=== PATIENT | female | born 1965 | race African-American/Black ===

== ENCOUNTER 2018-06-28 07:38 | Inpatient (IN) | payer MEDICARE, MEDICAID ==
[2018-06-28] VITALS (8 sets, daily range): BP systolic 150–201; BP diastolic 80–94
[~2018-06-28] VITALS: Ht 165.1 cm; Wt 130.2 kg
[2018-06-28] MEDS ORDERED: IPRATROPIUM BROMIDE (0.02%) 0.5MG/2.5ML NEB HHN STA (08:02)
[2018-06-28] MEDS ORDERED: ALBUTEROL (0.083%) 2.5MG/3ML NEB HHN STA (08:02)
[2018-06-28] MEDS ORDERED: NITROGLYCERIN 50MG PREMIX 250 ML IV ONE (08:15)
[2018-06-28] MEDS ORDERED: FUROSEMIDE 40MG/4ML VIAL IV ONE (08:15)
[2018-06-28] MEDS ORDERED: NITROGLYCERIN 0.4MG TABLET SL SL PRN ×2 (08:30→12:15)
[2018-06-28 09:06] LABS: BASOPHILS % 0.4 % (0.0-2.0); EOSINOPHILS % 0.6 % (0.0-5.0); HEMATOCRIT. 37.1 % (36.0-48.0); HEMOGLOBIN. 11.7 g/dL (12.0-16.0); LYMPHOCYTES % 9.2 % (20.0-50.0); MEAN CORPUSCULAR HEMOGLOBIN 25.5 pg (28.0-32.0); MEAN CORPUSCULAR VOLUME 80.8 fL (81.0-99.0); MEAN PLATELET VOLUME 8.6 fl (7.4-10.4); NEUTROPHILS % 85.8 % (40.0-76.0); PLATELET 293 x1000/uL (130-400); RED BLOOD CELL COUNT 4.59 mill/uL (4.2-5.4)
[2018-06-28 09:07] LABS: CHLORIDE 114 mEq/L (98-107)
[2018-06-28 09:09] LABS: PROTHROMBIN TIME 10.5 sec (9.6-11.0)
[2018-06-28] MEDS ORDERED: LEVOFLOXACIN 750MG PREMIX 150 ML IV ONE (09:15)
[2018-06-28] MEDS ORDERED: VANCOMYCIN 1 G PREMIX 200 ML IV STA (09:19)
[2018-06-28] MEDS ORDERED: CEFEPIME 1,000 MG in DEXTROSE 5% WATER 50 ML IV STA (09:19)
[2018-06-28] MEDS ORDERED: LIDOCAINE HCL 1% 20ML VIAL (Pyxis) INJ ONE (09:30)
[2018-06-28] MEDS ORDERED: KETOROLAC 15MG/ML VIAL IV ONE (09:30)
[2018-06-28] MEDS ORDERED: ASPIRIN 81MG TABLET PO ONE (09:30)
[2018-06-28] MEDS ORDERED: SODIUM BICARBONATE 4% (2.4MEQ) 5ML VIAL IV ONE (09:30)
[2018-06-28] MEDS ORDERED: TRAMADOL 50MG TABLET PO PRN (12:15)
[2018-06-28] MEDS ORDERED: IPRATROPIUM/ALBUTEROL 0.5-3(2.5)MG/3ML NEB INH PRN (12:15)
[2018-06-28] MEDS ORDERED: ONDANSETRON HCL 4MG/2ML INJ IV PRN (12:15)
[2018-06-28] MEDS ORDERED: LORAZEPAM 0.5MG TABLET PO PRN ×2 (12:15→13:00)
[2018-06-28] MEDS ORDERED: DIPHENHYDRAMINE 50MG/ML VIAL IV PRN (12:15)
[2018-06-28] MEDS ORDERED: ENOXAPARIN 40MG/0.4ML SYR SUBCUT SCH (12:15)
[2018-06-28] MEDS ORDERED: DEXTROSE 50% WATER 50ML SYRINGE IV PRN (12:15)
[2018-06-28] MEDS ORDERED: CLONIDINE 0.1MG TABLET PO PRN (12:15)
[2018-06-28] MEDS ORDERED: ZOLPIDEM TARTRATE 5MG TABLET PO PRN (12:15)
[2018-06-28] MEDS ORDERED: MAGNESIUM/ALUMINUM HYDROXIDE/SIMETHICONE 30ML UDC PO PRN (12:15)
[2018-06-28] MEDS ORDERED: GUAIFENESIN 200MG/10ML SUGAR FREE UDC PO PRN (12:15)
[2018-06-28 13:51] LABS: BG BASE EXCESS -1.4 mmol/L (-2.0-2.0); BG BILEVEL POS AIRWAY PRESSURE ST=18/5; BG CARBOXYHEMOGLOBIN 0.3 % (0.5-1.5); BG DEOXYHEMOGLOBIN 3.1 % (0.0-5.0); BG FRACTION INSPIRED OXYGEN 40; BG HCO3 ACT 23.1 mmol/L (22.0-26.0); BG METHEMOGLOBIN 0.3 % (0.0-1.5); BG OXYGEN SATURATION 96.9 % (92.0-98.5); BG OXYHEMOGLOBIN 96.3 % (94.0-97.0); BG PH 7.402 (7.350-7.450); BG PO2 92.9 mmHg (75.0-100.0); BG PRESSURE SUPPORT 13; BG SAMPLE SITE RIGHT BRACHIAL; BG TOTAL HEMOGLOBIN 11.5 g/dL (12.0-18.0); BG VENT MODE MASK - BIPAP; BG VENT RATE 12 set
[2018-06-28 15:52] LABS: CREATINE KINASE MB FRACTION 1.1 ng/mL (0.5-3.6)
[2018-06-28] MEDS: BLOOD SUGAR DIAGNOSTIC STRIP TEST SCH ×2 (17:00→20:38)
[2018-06-28] MEDS: INSULIN LISPRO 100 UNITS/ML SUBCUT SCH ×2 (17:20→21:37)
[2018-06-28] MEDS ORDERED: INFLUENZA VIRUS VACCINE(AFLURIA) 0.5ML SYR IM ONE (17:30)
[2018-06-28] MEDS ORDERED: PNEUMOCOCCAL 23-VAL P-SAC VAC 0.5 ML IM ONE (17:30)
[2018-06-28] MEDS ORDERED: LORAZEPAM 2MG/ML CPJ IV PRN (18:45)
[2018-06-28 18:52] LABS: BG BASE EXCESS -0.1 mmol/L (-2.0-2.0); BG BILEVEL POS AIRWAY PRESSURE 18/5; BG DEOXYHEMOGLOBIN 6.5 % (0.0-5.0); BG FRACTION INSPIRED OXYGEN 40; BG METHEMOGLOBIN 0.4 % (0.0-1.5); BG OXYGEN SATURATION 93.5 % (92.0-98.5); BG OXYHEMOGLOBIN 93.1 % (94.0-97.0); BG PCO2 37.3 mmHg (35.0-45.0); BG PH 7.427 (7.350-7.450); BG PO2 67.7 mmHg (75.0-100.0); BG SAMPLE SITE RIGHT BRACHIAL; BG TOTAL HEMOGLOBIN 11.1 g/dL (12.0-18.0); BG VENT MODE MASK - BIPAP; BG VENT RATE 18 set
[2018-06-28] MEDS ORDERED: PIPERACILLIN/TAZ 3.375G PREMIX 50 ML IV SCH (20:00)
[2018-06-28] MEDS: FUROSEMIDE 40MG/4ML VIAL IVP SCH (20:36)
[2018-06-28] MEDS: METHYLPREDNISOLONE SOD SUCC 125 MG/2 ML VIAL IV SCH (20:37)
[2018-06-28] MEDS: GUAIFENESIN/DM 600MG/30MG ER TAB 12HR PO SCH (20:37)
[2018-06-28] MEDS: ENOXAPARIN 150MG/ML SYR SUBCUT SCH (20:37)
[2018-06-28] MEDS: LISINOPRIL 20MG TABLET PO SCH (20:38)
[2018-06-28] MEDS: FAMOTIDINE 20MG TABLET PO SCH (20:38)
[2018-06-28] MEDS: METOPROLOL TARTRATE 25MG TABLET PO SCH (20:38)
[2018-06-28 23:47] LABS: CREATINE KINASE 86 IU/L (26-192)
[2018-06-29] VITALS (25 sets, daily range): BP systolic 119–174; BP diastolic 65–98
[2018-06-29 01:48] LABS: CREATINE KINASE MB FRACTION < 1.0 ng/mL (0.5-3.6)
[2018-06-29] MEDS: PIPERACILLIN/TAZ 3.375G PREMIX 50 ML IV SCH ×4 (05:07→23:19)
[2018-06-29] MEDS: METHYLPREDNISOLONE SOD SUCC 125 MG/2 ML VIAL IV SCH ×3 (05:07→22:13)
[2018-06-29] MEDS: INSULIN LISPRO 100 UNITS/ML SUBCUT SCH ×4 (07:23→21:38)
[2018-06-29] MEDS: BLOOD SUGAR DIAGNOSTIC STRIP TEST SCH ×4 (07:24→21:28)
[2018-06-29] MEDS: IPRATROPIUM/ALBUTEROL 0.5-3(2.5)MG/3ML NEB HHN SCH ×4 (07:35→20:49)
[2018-06-29] MEDS: FAMOTIDINE 20MG TABLET PO SCH ×2 (07:47→21:27)
[2018-06-29] MEDS: METOPROLOL TARTRATE 25MG TABLET PO SCH ×2 (07:47→21:28)
[2018-06-29] MEDS: DOCUSATE SODIUM 100MG CAPSULE PO PRN (07:47)
[2018-06-29] MEDS: FUROSEMIDE 40MG/4ML VIAL IVP SCH ×2 (07:47→21:27)
[2018-06-29] MEDS: GUAIFENESIN/DM 600MG/30MG ER TAB 12HR PO SCH ×2 (07:47→21:27)
[2018-06-29] MEDS: LISINOPRIL 20MG TABLET PO SCH ×2 (07:48→21:27)
[2018-06-29] MEDS: ASPIRIN 325MG EC TABLET PO SCH (07:48)
[2018-06-29] MEDS: ENOXAPARIN 150MG/ML SYR SUBCUT SCH ×2 (07:50→21:36)
[2018-06-29] MEDS ORDERED: INSULIN LISPRO 100 UNITS/ML SUBCUT SCH (18:00)
[2018-06-29] MEDS: INSULIN GLARGINE UD 100 UNITS/ML SYR SUBCUT SCH (22:13)
[2018-06-30] VITALS (21 sets, daily range): BP systolic 118–183; BP diastolic 56–116
[2018-06-30] MEDS: IPRATROPIUM/ALBUTEROL 0.5-3(2.5)MG/3ML NEB HHN SCH ×6 (00:33→21:06)
[2018-06-30] MEDS: METHYLPREDNISOLONE SOD SUCC 125 MG/2 ML VIAL IV SCH (05:31)
[2018-06-30] MEDS: PIPERACILLIN/TAZ 3.375G PREMIX 50 ML IV SCH ×3 (05:31→17:27)
[2018-06-30] MEDS: BLOOD SUGAR DIAGNOSTIC STRIP TEST SCH ×4 (06:22→21:19)
[2018-06-30] MEDS: FUROSEMIDE 40MG/4ML VIAL IVP SCH ×2 (08:18→21:17)
[2018-06-30] MEDS: FAMOTIDINE 20MG TABLET PO SCH ×2 (08:18→21:18)
[2018-06-30] MEDS: ASPIRIN 325MG EC TABLET PO SCH (08:18)
[2018-06-30] MEDS: LISINOPRIL 20MG TABLET PO SCH ×2 (08:18→21:18)
[2018-06-30] MEDS: METOPROLOL TARTRATE 25MG TABLET PO SCH ×2 (08:18→21:18)
[2018-06-30] MEDS: GUAIFENESIN/DM 600MG/30MG ER TAB 12HR PO SCH ×2 (08:18→21:17)
[2018-06-30] MEDS: ENOXAPARIN 150MG/ML SYR SUBCUT SCH ×2 (08:20→21:19)
[2018-06-30] MEDS: INSULIN LISPRO 100 UNITS/ML SUBCUT SCH ×4 (08:22→21:29)
[2018-06-30 10:07] LABS: BASOPHILS % 0.2 % (0.0-2.0); HEMATOCRIT. 34.1 % (36.0-48.0); HEMOGLOBIN. 11.1 g/dL (12.0-16.0); LYMPHOCYTES % 9.7 % (20.0-50.0); MEAN CORPUSCULAR HEMOGLOBIN 25.6 pg (28.0-32.0); MEAN CORPUSCULAR VOLUME 78.4 fL (81.0-99.0); MEAN PLATELET VOLUME 9.1 fl (7.4-10.4); MONOCYTES % 2.7 % (2.0-8.0); NEUTROPHILS % 87.4 % (40.0-76.0); PLATELET 294 x1000/uL (130-400); RED BLOOD CELL COUNT 4.35 mill/uL (4.2-5.4); RED CELL DISTRIBUTION WIDTH 15.3 % (11.6-14.6)
[2018-06-30 10:10] LABS: INR 1.1; PARTIAL THROMBOPLASTIN TIME 35.2 sec (23.4-31.0); PROTHROMBIN TIME 10.9 sec (9.6-11.0)
[2018-06-30 10:54] LABS: BG BASE EXCESS -5.4 mmol/L (-2.0-2.0); BG CARBOXYHEMOGLOBIN 0.3 % (0.5-1.5); BG FRACTION INSPIRED OXYGEN 21; BG HCO3 ACT 18.3 mmol/L (22.0-26.0); BG METHEMOGLOBIN 0.2 % (0.0-1.5); BG OXYHEMOGLOBIN 92.5 % (94.0-97.0); BG PCO2 29.9 mmHg (35.0-45.0); BG PH 7.404 (7.350-7.450); BG PO2 69.5 mmHg (75.0-100.0); BG SAMPLE SITE RIGHT BRACHIAL; BG TOTAL HEMOGLOBIN 11.3 g/dL (12.0-18.0); BG VENT MODE ROOM AIR
[2018-06-30] MEDS: PREDNISONE 20MG TABLET PO SCH ×2 (12:03→17:27)
[2018-06-30] MEDS ORDERED: LORAZEPAM 0.5MG TABLET PO PRN (12:15)
[2018-06-30] MEDS: INSULIN GLARGINE UD 100 UNITS/ML SYR SUBCUT SCH (21:24)
[2018-07-01] VITALS (23 sets, daily range): BP systolic 137–174; BP diastolic 60–110
[2018-07-01] MEDS: PIPERACILLIN/TAZ 3.375G PREMIX 50 ML IV SCH ×5 (00:39→23:47)
[2018-07-01] MEDS: IPRATROPIUM/ALBUTEROL 0.5-3(2.5)MG/3ML NEB HHN SCH ×5 (01:25→21:09)
[2018-07-01] MEDS: BLOOD SUGAR DIAGNOSTIC STRIP TEST SCH ×4 (06:16→21:49)
[2018-07-01] MEDS: FUROSEMIDE 40MG/4ML VIAL IVP SCH ×2 (08:51→20:48)
[2018-07-01] MEDS: ENOXAPARIN 150MG/ML SYR SUBCUT SCH ×2 (08:51→20:49)
[2018-07-01] MEDS: METOPROLOL TARTRATE 25MG TABLET PO SCH ×2 (08:52→21:49)
[2018-07-01] MEDS: ASPIRIN 325MG EC TABLET PO SCH (08:52)
[2018-07-01] MEDS: PREDNISONE 20MG TABLET PO SCH ×2 (08:53→12:55)
[2018-07-01] MEDS: FAMOTIDINE 20MG TABLET PO SCH ×2 (08:53→20:48)
[2018-07-01] MEDS: LISINOPRIL 20MG TABLET PO SCH ×2 (08:53→20:54)
[2018-07-01] MEDS: INSULIN LISPRO 100 UNITS/ML SUBCUT SCH ×4 (08:54→21:31)
[2018-07-01] MEDS ORDERED: MORPHINE SULFATE 4 MG/ML CPJ (NOT FOR IM USE) IV SCH ×2 (10:30→14:45)
[2018-07-01] MEDS ORDERED: HYDROCODONE/ACETAMINOPHEN 10/325MG TABLET PO PRN (10:45)
[2018-07-01] MEDS: GUAIFENESIN/DM 600MG/30MG ER TAB 12HR PO SCH ×2 (12:55→20:50)
[2018-07-01 17:04] LABS: CHLORIDE 103 mEq/L (98-107)
[2018-07-01] MEDS: HYDROCODONE/ACETAMINOPHEN 5/325MG TABLET PO PRN ×2 (21:19→22:29)
[2018-07-01] MEDS: INSULIN GLARGINE UD 100 UNITS/ML SYR SUBCUT SCH (21:25)
[2018-07-02] VITALS (10 sets, daily range): BP systolic 125–150; BP diastolic 56–81
[2018-07-02] MEDS: IPRATROPIUM/ALBUTEROL 0.5-3(2.5)MG/3ML NEB HHN SCH ×6 (00:39→22:58)
[2018-07-02] MEDS: PIPERACILLIN/TAZ 3.375G PREMIX 50 ML IV SCH ×3 (05:15→17:55)
[2018-07-02] MEDS: BLOOD SUGAR DIAGNOSTIC STRIP TEST SCH ×4 (06:44→21:00)
[2018-07-02 07:14] LABS: BASOPHILS % 0.1 % (0.0-2.0); HEMATOCRIT. 28.2 % (36.0-48.0); HEMOGLOBIN. 9.4 g/dL (12.0-16.0); LYMPHOCYTES % 11.8 % (20.0-50.0); MEAN CORPUSCULAR HEMOGLOBIN 26.1 pg (28.0-32.0); MEAN CORPUSCULAR VOLUME 78.3 fL (81.0-99.0); MEAN PLATELET VOLUME 8.9 fl (7.4-10.4); MONOCYTES % 8.6 % (2.0-8.0); NEUTROPHILS % 79.5 % (40.0-76.0); PLATELET 254 x1000/uL (130-400)
[2018-07-02 07:30] LABS: PHOSPHORUS 3.8 mg/dL (2.5-4.9)
[2018-07-02] MEDS: INSULIN LISPRO 100 UNITS/ML SUBCUT SCH ×4 (07:48→21:00)
[2018-07-02] MEDS: ACETAMINOPHEN 325MG TABLET PO PRN (08:47)
[2018-07-02] MEDS: PREDNISONE 20MG TABLET PO SCH ×2 (09:00→09:49)
[2018-07-02] MEDS: FUROSEMIDE 40MG/4ML VIAL IVP SCH ×2 (09:49→22:32)
[2018-07-02] MEDS: FAMOTIDINE 20MG TABLET PO SCH ×2 (09:49→22:33)
[2018-07-02] MEDS: GUAIFENESIN/DM 600MG/30MG ER TAB 12HR PO SCH ×2 (09:49→22:33)
[2018-07-02] MEDS: ASPIRIN 325MG EC TABLET PO SCH (09:49)
[2018-07-02] MEDS: METOPROLOL TARTRATE 25MG TABLET PO SCH ×2 (09:53→22:32)
[2018-07-02] MEDS: LISINOPRIL 20MG TABLET PO SCH ×2 (09:53→22:33)
[2018-07-02] MEDS: ENOXAPARIN 150MG/ML SYR SUBCUT SCH (09:56)
[2018-07-02] MEDS: MORPHINE SULFATE 4 MG/ML CPJ (NOT FOR IM USE) IV PRN ×2 (15:39→21:18)
[2018-07-02] MEDS: ENOXAPARIN 30MG/0.3ML SYR SUBCUT SCH (22:32)
[2018-07-02] MEDS: INSULIN GLARGINE UD 100 UNITS/ML SYR SUBCUT SCH (22:46)
[2018-07-03] VITALS: BP_SYST 136; BP_SYST 156; BP_DIAS 77
[2018-07-03] MEDS: PIPERACILLIN/TAZ 3.375G PREMIX 50 ML IV SCH ×4 (00:43→19:48)
[2018-07-03] MEDS: IPRATROPIUM/ALBUTEROL 0.5-3(2.5)MG/3ML NEB HHN SCH ×7 (02:16→23:54)
[2018-07-03] MEDS: MORPHINE SULFATE 4 MG/ML CPJ (NOT FOR IM USE) IV PRN ×3 (02:37→19:00)
[2018-07-03 04:00] VITALS: BP 120/49
[2018-07-03] MEDS: INSULIN LISPRO 100 UNITS/ML SUBCUT SCH ×4 (07:10→21:00)
[2018-07-03] MEDS: BLOOD SUGAR DIAGNOSTIC STRIP TEST SCH ×4 (07:10→21:18)
[2018-07-03 08:00] VITALS: BP 140/48
[2018-07-03] MEDS: PREDNISONE 20MG TABLET PO SCH ×2 (09:00→09:18)
[2018-07-03] MEDS: ASPIRIN 325MG EC TABLET PO SCH (09:17)
[2018-07-03] MEDS: FUROSEMIDE 40MG/4ML VIAL IVP SCH ×2 (09:18→21:18)
[2018-07-03] MEDS: FAMOTIDINE 20MG TABLET PO SCH ×2 (09:18→21:16)
[2018-07-03] MEDS: GUAIFENESIN/DM 600MG/30MG ER TAB 12HR PO SCH ×2 (09:18→21:17)
[2018-07-03] MEDS: LISINOPRIL 20MG TABLET PO SCH ×2 (09:19→21:34)
[2018-07-03] MEDS: METOPROLOL TARTRATE 25MG TABLET PO SCH ×2 (09:19→21:18)
[2018-07-03] MEDS: ENOXAPARIN 30MG/0.3ML SYR SUBCUT SCH ×2 (09:20→21:35)
[2018-07-03 12:00] VITALS: BP 122/64
[2018-07-03] MEDS: BACITRACIN/POLYMYXIN B SULFATE OINT 15GM TOP SCH ×2 (12:27→21:35)
[2018-07-03 16:00] VITALS: BP 114/54
[2018-07-03 20:00] VITALS: BP 127/50
[2018-07-03] MEDS: DOCUSATE SODIUM 100MG CAPSULE PO PRN (21:17)
[2018-07-03] MEDS: INSULIN GLARGINE UD 100 UNITS/ML SYR SUBCUT SCH (22:00)
[2018-07-04] VITALS: BP 134/60
[2018-07-04] MEDS: PIPERACILLIN/TAZ 3.375G PREMIX 50 ML IV SCH ×3 (00:13→12:36)
[2018-07-04] MEDS: MORPHINE SULFATE 4 MG/ML CPJ (NOT FOR IM USE) IV PRN ×3 (01:10→12:38)
[2018-07-04] MEDS: ACETAMINOPHEN 325MG TABLET PO PRN (03:10)
[2018-07-04] MEDS: IPRATROPIUM/ALBUTEROL 0.5-3(2.5)MG/3ML NEB HHN SCH (03:45)
[2018-07-04 04:00] VITALS: BP 113/49
[2018-07-04] MEDS: BLOOD SUGAR DIAGNOSTIC STRIP TEST SCH ×3 (05:48→17:02)
[2018-07-04] MEDS: INSULIN LISPRO 100 UNITS/ML SUBCUT SCH ×3 (07:15→17:15)
[2018-07-04 08:00] VITALS: BP 109/75
[2018-07-04] MEDS: METOPROLOL TARTRATE 25MG TABLET PO SCH (09:00)
[2018-07-04] MEDS: LISINOPRIL 20MG TABLET PO SCH (09:00)
[2018-07-04] MEDS: FAMOTIDINE 20MG TABLET PO SCH (09:23)
[2018-07-04] MEDS: ASPIRIN 325MG EC TABLET PO SCH (09:23)
[2018-07-04] MEDS: FUROSEMIDE 40MG/4ML VIAL IVP SCH (09:23)
[2018-07-04] MEDS: GUAIFENESIN/DM 600MG/30MG ER TAB 12HR PO SCH (09:23)
[2018-07-04] MEDS: ENOXAPARIN 30MG/0.3ML SYR SUBCUT SCH (09:23)
[2018-07-04] MEDS: BACITRACIN/POLYMYXIN B SULFATE OINT 15GM TOP SCH (09:24)
[2018-07-04 09:41] LABS: BASOPHILS % 0.6 % (0.0-2.0); EOSINOPHILS % 0.6 % (0.0-5.0); LYMPHOCYTES % 35.3 % (20.0-50.0); MEAN CORPUSCULAR HEMOGLOBIN 25.7 pg (28.0-32.0); MEAN CORPUSCULAR VOLUME 78.9 fL (81.0-99.0); MEAN PLATELET VOLUME 9.1 fl (7.4-10.4); MONOCYTES % 8.7 % (2.0-8.0); NEUTROPHILS % 54.8 % (40.0-76.0); PLATELET 77 x1000/uL (130-400); RED BLOOD CELL COUNT 3.05 mill/uL (4.2-5.4); RED CELL DISTRIBUTION WIDTH 15.1 % (11.6-14.6)
[2018-07-04 09:51] LABS: HEMOGLOBIN. 7.9 g/dL (12.0-16.0)
[2018-07-04 09:52] LABS: HEMATOCRIT. 24.1 % (36.0-48.0)
[2018-07-04 09:55] LABS: PHOSPHORUS 4.7 mg/dL (2.5-4.9)
[2018-07-04 12:00] VITALS: BP 152/75
[2018-07-04] MEDS ORDERED: HYDROCODONE/ACETAMINOPHEN 10/325MG TABLET PO PRN ×2 (12:30)
[2018-07-04] MEDS ORDERED: ONDANSETRON HCL 4MG TABLET PO PRN (12:30)
[2018-07-04] MEDS ORDERED: LEVOFLOXACIN 250MG TABLET PO SCH (13:00)
[2018-07-04] MEDS ORDERED: HYDROCODONE/ACETAMINOPHEN 5/325MG TABLET PO PRN (13:00)
[2018-07-04] MEDS ORDERED: TRAMADOL HCL/ACETAMINOPHEN 37.5/325MG TABLET PO PRN (14:00)
[2018-07-04] MEDS ORDERED: METRONIDAZOLE 500MG TABLET PO SCH (14:00)
[2018-07-04 16:00] VITALS: BP 96/70
[2018-07-04] MEDS ORDERED: FUROSEMIDE 40MG TABLET PO SCH (21:00)
== END 2018-07-04 17:50 | disposition left against medical advice (07) | DRG 871 ==
LOC: ER 07:51 → 3WST 10:25 → EDBEDREQ 10:29 → SUPCPDRO 12:06 → ENRESERV 15:39 → 5WST 07-02 15:21
PROVIDERS: ADMIT Internal Medicine; ATTEND Internal Medicine
PROC: 5A09457 Assistance with Respiratory Ventilation, 24-96 Consecutive Hours, Continuous Positive Airway Pressure (ICD-10-PCS; principal; 2018-06-28)
DX: A41.9 Sepsis, unspecified organism (principal); J96.01 Acute respiratory failure with hypoxia; N17.0 Acute kidney failure with tubular necrosis; I21.4 Non-ST elevation (NSTEMI) myocardial infarction; J18.9 Pneumonia, unspecified organism; I50.31 Acute diastolic (congestive) heart failure; J44.1 Chronic obstructive pulmonary disease with (acute) exacerbation; E44.0 Moderate protein-calorie malnutrition; E87.0 Hyperosmolality and hypernatremia
CPT/HCPCS: 36415; 36569; 36600; 71045; 76770; 76937; 80048; 80061; 82375; 82550; 82553; 82805; 82962; 83036; 83605; 83735; 83880; 84100; 84484; 93005; 93306; 93970; 93971; 94640; 94660; 96365; 96375; 99291; C1725; C1769; C1893; J0692; J1650; J1815; J1885; J1940; J2060; J2270; J2543; J2930; J3370; J3490; J7050; J7060; J7512; J7611; J7620; A4315

== ENCOUNTER 2023-03-19 17:47 | Emergency (ER) | payer MEDICAID, MEDICARE, OTHER ==
[~2023-03-19] VITALS: Ht 165.1 cm; Wt 109.0 kg
[2023-03-19 17:51] VITALS: O2SAT 98
[2023-03-19] MEDS ORDERED: ONDANSETRON HCL 4MG/2ML INJ IV STA (18:00)
[2023-03-19] MEDS ORDERED: SODIUM CHLORIDE 0.9% 1,000 ML IV ONE (18:00)
[2023-03-19] MEDS ORDERED: MORPHINE SULFATE 4 MG/ML CPJ (NOT FOR IM USE) IV STA (18:00)
[2023-03-19 19:21] LABS: BASOPHILS % 0.7 % (0.0-2.0); EOSINOPHILS % 3.9 % (0.0-5.0); HEMATOCRIT. 26.2 % (36.0-48.0); HEMOGLOBIN. 8.3 g/dL (12.0-16.0); LYMPHOCYTES % 19.3 % (20.0-50.0); MEAN CORPUSCULAR HEMOGLOBIN 26.3 pg (28.0-32.0); MEAN CORPUSCULAR HGB CONC 31.8 g/dL (31.0-37.0); MEAN CORPUSCULAR VOLUME 82.6 fL (81.0-99.0); MEAN PLATELET VOLUME 8.6 fl (7.4-10.4); NEUTROPHILS % 64.1 % (40.0-76.0); PLATELET 294 x1000/uL (130-400); RED BLOOD CELL COUNT 3.17 mill/uL (4.2-5.4); RED CELL DISTRIBUTION WIDTH 15.9 % (11.6-14.6); WHITE BLOOD COUNT 6.6 x1000/uL (4.5-11.0)
[2023-03-19 19:34] LABS: ALANINE AMINOTRANSFERASE 8 IU/L (10-49); ALBUMIN 3.4 g/dL (3.2-4.8); ASPARTATE AMINOTRANSFERASE 12 IU/L (<34); BILIRUBIN TOTAL 0.2 mg/dL (0.1-1.0); CALCIUM 8.7 mg/dL (8.7-10.4); CARBON DIOXIDE 26 mEq/L (21-32); CHLORIDE 106 mEq/L (98-107); GLUCOSE 285 mg/dL (70-105); POTASSIUM 4.5 mEq/L (3.5-5.1); SODIUM 142 mEq/L (136-145); UREA NITROGEN BLOOD 57 mg/dL (9-23)
[2023-03-19 19:43] LABS: PARTIAL THROMBOPLASTIN TIME 25.8 sec (23.4-31.0); PROTHROMBIN TIME 10.5 sec (9.6-11.0)
[2023-03-19 19:45] LABS: CREATININE 6.1 mg/dL (0.6-1.0); TROPONIN I HIGH SENSITIVITY 99 ng/L (3.0-34)
[2023-03-19] MEDS ORDERED: ASPIRIN 81MG TABLET PO ONE (23:45)
[2023-03-19 23:57] LABS: TROPONIN I HIGH SENSITIVITY 94 ng/L (3.0-34)
[2023-03-20 01:32] VITALS: BP 113/52; PULSE 88; RESP 18; TEMP 97.7
== END 2023-03-20 02:05 | disposition short-term general hospital (02) ==
LOC: ER 17:47
DX: R10.9 Unspecified abdominal pain (principal); R79.89 Other specified abnormal findings of blood chemistry; I13.0 Hypertensive heart and chronic kidney disease with heart failure and stage 1 through stage 4 chronic kidney disease, or unspecified chronic kidney disease; I50.9 Heart failure, unspecified; J44.9 Chronic obstructive pulmonary disease, unspecified; N18.9 Chronic kidney disease, unspecified; Z90.49 Acquired absence of other specified parts of digestive tract; Z98.890 Other specified postprocedural states
CPT/HCPCS: 80053; 83880; 83690; 85025; 85610; 85730; 84484; 36415; 71045; 74176; 93005; 96361; 96374; 96375; 99291; J2405; J2270; J7030; Z7610